=== PATIENT | male | born 1995 | race Caucasian/White ===

== ENCOUNTER 2016-06-28 17:54 | Emergency (ER) | payer BC ==
[2016-06-28 18:18] VITALS: RESP 16
--- NOTE | 2016-06-28 18:47 | EDPHY ---
H & P Stated Complaint: Abd pain with n/v since Tuesday after drinking HPI/ROS: HPI CHIEF COMPLAINT: Abdominal pain, nausea, vomiting HISTORY OF PRESENT ILLNESS: This patient very pleasant 21-year-old male, denies any significant medical history except for asthma, he has had an appendectomy, presents emergency room with abdominal pain. Patient tells me that his abdominal pain started Tuesday night. He tells me drank multiple beers approximately 6 throughout Tuesday afternoon he stopped drinking alcohol around 3 :00 p.m. around Tuesday night around 10:00 p.m. he developed epigastric abdominal pain he describes a dull ache nonradiating. He had multiple episodes of nonbilious nonbloody vomiting initially. States mainly stomach acid. He has been vomiting for the past 3 days. No diarrhea. No fever no chest pain or shortness of breath. Patient tells me he now sees "brown chunks" is vomit. Denies heather blood. Past Medical History: Asthma Past Surgical History: Appendectomy, tonsillectomy Social History: [employer] student, denies drugs or tobacco endorses occasional alcohol use Family History: Noncontributory ROS REVIEW OF SYSTEMS: A comprehensive 10 point review of systems is otherwise negative aside from elements mentioned in the history of present illness. Exam Constitutional appears well nontoxic triage nursing summary reviewed, vital signs reviewed, awake/alert. Eyes normal conjunctivae and sclera, EOMI, PERRLA. HENT normal inspection, atraumatic, moist mucus membranes, no epistaxis, neck supple/ no meningismus, no raccoon eyes. Respiratory clear to auscultation bilaterally, normal breath sounds, no respiratory distress, no wheezing. Cardiovascular rate normal, regular rhythm, no murmur, no edema, distal pulses normal. Gastrointestinal soft, mild tenderness palpation right upper quadrant and epigastric region, no lower abdominal pain, , no rebound, no guarding, normal bowel sounds, no distension, no pulsatile mass. Genitourinary no CVA tenderness. Musculoskeletal no midline vertebral tenderness, full range of motion, no calf swelling, no tenderness of extremities, no meningismus, good pulses, neurovascularly intact. Skin pink, warm, & dry, no rash, skin atraumatic. Neurologic awake, alert and oriented x 3, AAOx3, moves all 4 extremities equally, motor intact, sensory intact, CN II-XII intact, normal cerebellar, normal vision, normal speech. Psychiatric normal mood/affect. Heme/Lymph/Immune no lymphadenopathy. Differential diagnosis includes but is not limited to and in no particular order : Alcohol-induced gastritis, Bowel obstruction, appendicitis, gallbladder disease, diverticulitis, colitis, enteritis, perforated viscus, gastritis, GERD , esophagitis, urinary tract infection, pyelonephritis, kidney stones Medical Decision Making: Plan for this patient IV establishment IV fluid bolus , IV Zofran for nausea IV Pepcid for epigastric abdominal pain, ultrasound right upper quadrant, KUB. Re-evaluation. Check electrolytes, check blood work LFTs and lipase. Re-evaluation: Ultrasound of the abdomen right upper quadrant The results of the study are negative for acute inflammatory process. I discussed the results of this study with the radiologist Dr. Simon Goss. ED KUB: One view: I do not appreciate abnormal bowel gas pattern. No free air. Image interpreted by myself. 2049: At this time this patient is resting comfortably re-examination is abdomen is soft nontender no guarding or peritoneal signs. Blood work KUB and ultrasound been reviewed nothing acute. Most likely gastritis. Recommend bland diet for the next 48 hours Zantac and Zofran. Return to the emergency room does worsening abdominal pain fever vomiting he understands. I did update his mom over the phone who lives in [place]. She is comfortable this plan. Patient is p. o. challenging well without any vomiting or significant abdominal pain. Source: Patient - Personal History Current Tetanus Diphtheria and Acellular Pertussis (TDAP): Yes - Medical/Surgical History Hx Asthma: Yes - Social History Smoking Status: Never smoked Constitutional: Initial Vital Signs Temperature (C) 36.8 C 06/28/16 18:10 Heart Rate 58 L 06/28/16 18:10 Respiratory Rate 16 06/28/16 18:10 Blood Pressure 134/59 H 06/28/16 18:10 O2 Sat (%) 99 06/28/16 18:10 O2 Delivery Mode Room Air Allergies/Adverse Reactions: No Known Allergies Allergy (Unverified 06/28/16 18:18) Home Medications: Medication Instructions Recorded D-Amphetamine 06/28/16 Ondansetron HCl [Zofran] 4 mg PO Q4-6PRN PRN #10 tablet 06/28/16 Ondansetron HCl [Zofran] 4 mg PO Q4-6PRN PRN #10 tablet 06/28/16 Ranitidine HCl [Zantac] 150 mg PO DAILY #30 tablet 06/28/16 Vyvance 06/28/16 Medical Decision Making - Diagnostics Imaging Results: Imaging Impressions Abdomen X-Ray 06/28/16 18:51 Impression: No acute findings in the abdomen. Abdomen Ultrasound 06/28/16 18:54 Impression: Normal right upper quadrant ultrasound. Findings discussed with Armani Mays MD 06/28/2016 at 20:15. - Data Points Laboratory Results: Laboratory Results 06/28/16 19:05 06/28/16 19:05 06/28/16 06/28/16 06/28/16 19:05 19:05 19:05 WBC 9.48 10^3/uL 10^3/uL (3.80-9.50) RBC 5.31 10^6/uL 10^6/uL (4.40-6.38) Hgb 17.0 g/dL g/dL (13.7-17.5) Hct 47.1 % % (40.0-51.0) MCV 88.7 fL fL (81.5-99.8) MCH 32.0 pg pg (27.9-34.1) MCHC 36.1 g/dL g/dL (32.4-36.7) RDW 12.0 % % (11.5-15.2) Plt Count 232 10^3/uL 10^3/uL (150-400) MPV 10.5 fL fL (8.7-11.7) Neut % (Auto) 70.7 % % (39.3-74.2) Lymph % (Auto) 19.2 % % (15.0-45.0) Bureau % (Auto) 8.3 % % (4.5-13.0) Eos % (Auto) 0.1 % L % (0.6-7.6) Baso % (Auto) 0.2 % L % (0.3-1.7) Nucleat RBC Rel Count 0.0 % % (0.0-0.2) Absolute Neuts (auto) 6.70 10^3/uL H 10^3/uL (1.70-6.50) Absolute Lymphs (auto) 1.82 10^3/uL 10^3/uL (1.00-3.00) Absolute Monos (auto) 0.79 10^3/uL 10^3/uL (0.30-0.80) Absolute Eos (auto) 0.01 10^3/uL L 10^3/uL (0.03-0.40) Absolute Basos (auto) 0.02 10^3/uL 10^3/uL (0.02-0.10) Absolute Nucleated RBC 0.00 10^3/uL 10^3/uL (0-0.01) Immature Gran % 1.5 % H % (0.0-1.1) Immature Gran # 0.14 10^3/uL H 10^3/uL (0.00-0.10) PT 14.8 SEC SEC (12.0-15.0) INR 1.16 (0.83-1.16) APTT 26.7 SEC SEC (23.0-38.0) Sodium 137 mEq/L mEq/L (134-144) Potassium 3.7 mEq/L mEq/L (3.5-5.2) Chloride 101 mEq/L mEq/L (97-110) Carbon Dioxide 24 mEq/l mEq/l (22-31) Anion Gap 12 mEq/L mEq/L (8-16) BUN 10 mg/dL mg/dL (7-23) Creatinine 1.1 mg/dL mg/dL (0.7-1.3) Estimated GFR > 60 Glucose 88 mg/dL mg/dL (70-100) Calcium 9.4 mg/dL mg/dL (8.5-10.4) Total Bilirubin 1.2 mg/dL mg/dL (0.1-1.4) Conjugated Bilirubin 0.4 mg/dL mg/dL (0.0-0.5) Unconjugated Bilirubin 0.8 mg/dL mg/dL (0.0-1.1) AST 22 IU/L IU/L (17-59) ALT 29 IU/L IU/L (21-72) Alkaline Phosphatase 75 IU/L IU/L (38-126) Total Protein 7.0 g/dL g/dL (6.3-8.2) Albumin 4.4 g/dL g/dL (3.5-5.0) Lipase 79.0 IU/L IU/L (23-300) Medications Given: Discontinued Medications Sodium Chloride (Ns) 1,000 mls @ 0 mls/hr IV ONCE ONE PRN Reason: Wide Open Stop: 06/28/16 18:52 Last Admin: 06/28/16 19:11 Dose: 1,000 mls Famotidine/Sodium Chloride (Pepcid 20 Mg (Premix)) 50 mls @ 200 mls/hr IV EDNOW ONE Stop: 06/28/16 19:05 Last Admin: 06/28/16 19:11 Dose: 50 mls Sodium Chloride (Ns) 1,000 mls @ 0 mls/hr IV ONCE ONE PRN Reason: Wide Open Stop: 06/28/16 18:52 Last Admin: 06/28/16 19:11 Dose: 1,000 mls Ondansetron HCl (Zofran) 4 mg IVP EDNOW ONE Stop: 06/28/16 18:52 Last Admin: 06/28/16 19:11 Dose: 4 mg Departure - Departure Disposition: Home, Routine, Self-Care Clinical Impression: Abdominal pain Qualifiers: Abdominal location: epigastric Qualified Code(s): R10.13 - Epigastric pain Condition: Good Instructions: Acute Nausea and Vomiting (ED), Acute Abdominal Pain (ED) Additional Instructions: 1. Return emergency room immediately if he develops worsening abdominal pain fever vomiting. 2. Please see the bland diet no spicy fatty greasy foods. Referrals: [facility] [Other] - As per Instructions Edilson Crowe MD [Medical Doctor] - As per Instructions Prescriptions: Ondansetron HCl [Zofran] 4 mg PO Q4-6PRN PRN #10 tablet PRN Reason: Nausea/Vomiting, Use 1st Ondansetron HCl [Zofran] 4 mg PO Q4-6PRN PRN #10 tablet PRN Reason: Nausea/Vomiting, Use 1st Ranitidine HCl [Zantac] 150 mg PO DAILY #30 tablet
[2016-06-28] MEDS ORDERED: NS 1,000 ML IV ONE ×2 (18:51)
[2016-06-28] MEDS ORDERED: FAMOTIDINE 20 MG/NACL 50 ML IV ONE (18:51)
[2016-06-28] MEDS ORDERED: ONDANSETRON 4 MG/2 ML VIAL IVP ONE (18:51)
[2016-06-28 19:22] LABS: % IMMATURE GRANULYOCYTES 1.5 % (0.0-1.1); ABSOLUTE IMMATURE GRANULOCYTES 0.14 10^3/uL (0.00-0.10); ADD DIFF? NO; ADD MORPH? NO; ADD SCAN? NO; ATYPICAL LYMPHOCYTE FLAG 40 (0-99); FRAGMENT RBC FLAG 0 (0-99); HEMATOCRIT 47.1 % (40.0-51.0); LEFT SHIFT FLG 30 (0-99); LIPEMIA HEMOLYSIS FLAG 90 (0-99); MEAN CELL HEMOGLOBIN CONCENTR. 36.1 g/dL (32.4-36.7); MEAN CELL VOLUME 88.7 fL (81.5-99.8); MEAN PLATELET VOLUME 10.5 fL (8.7-11.7); PLATELET CLUMPS FLAG 0 (0-99); PLATELET COUNT 232 10^3/uL (150-400); RED BLOOD CELL COUNT 5.31 10^6/uL (4.40-6.38)
[2016-06-28 19:30] LABS: APTT 26.7 SEC (23.0-38.0); INR 1.16 (0.83-1.16); PROTIME(PATIENT) 14.8 SEC (12.0-15.0)
[2016-06-28 19:38] LABS: ALANINE AMINOTRANSFERASE 29 IU/L (21-72); ALBUMIN 4.4 g/dL (3.5-5.0); ALKALINE PHOSPHATASE 75 IU/L (38-126); ANION GAP 12 mEq/L (8-16); ASPARTATE AMINOTRANSFERASE 22 IU/L (17-59); BILIRUBIN,TOTAL 1.2 mg/dL (0.1-1.4); BILIRUBIN-CONJUGATED 0.4 mg/dL (0.0-0.5); BILIRUBIN-UNCONJUGATED 0.8 mg/dL (0.0-1.1); CALCIUM 9.4 mg/dL (8.5-10.4); CARBON DIOXIDE 24 mEq/l (22-31); CHLORIDE 101 mEq/L (97-110); CREATININE 1.1 mg/dL (0.7-1.3); GLOMERULAR FILTRATION RATE > 60; GLUCOSE 88 mg/dL (70-100); POTASSIUM 3.7 mEq/L (3.5-5.2); SODIUM 137 mEq/L (134-144)
[2016-06-28 20:11] VITALS: O2SAT 96
[2016-06-28 21:05] VITALS: BP 133/76; PULSE 65; TEMP 97.9
== END 2016-06-28 21:05 | disposition home or self-care (01) ==
DX: R10.13 Epigastric pain (principal); J45.909 Unspecified asthma, uncomplicated
CPT/HCPCS: 96365; J2405